=== PATIENT | male | born 1955 | race Caucasian/White ===

== ENCOUNTER 2020-10-01 15:18 | Inpatient (IN) | payer MEDICARE ==
[2020-10-01] MEDS ORDERED: Iopamidol-370 76% 500 ML 1 ML ONE (15:28)
[2020-10-01 15:41] LABS: #Basophils 0.1 thou/uL (0.0-0.2); #Lymphocytes 1.7 thou/uL (1.20-3.40); #Neutrophils 16.6 thou/uL (1.40-6.50); %Basophils 0.3 % (0.0-1.0); %Eosinophils 0.2 % (0.0-10.0); %Lymphocytes 8.5 % (21.0-51.0); %Monocytes 5.3 % (0.0-10.0); %Neutrophils 85.7 % (42.0-75.0); Hemoglobin 16.2 g/dL (14.0-18.0); Mean Corpuscular HGB CONC 34.7 g/dL (32.0-36.0); Mean Corpuscular Hemoglobin 32.3 pg (27.0-31.0); Mean Corpuscular Volume 92.9 fL (78.0-98.0); Mean Platelet Volume 7.7 fL (7.4-10.4); Platelet Count 275 thou/uL (130-400); RBC Distribution Width 12.2 % (11.5-14.5); Red Blood Cell (RBC) Count 5.03 mill/uL (4.70-6.10); White Blood Cell (WBC) Count 19.4 thou/uL (4.8-10.8)
[2020-10-01 16:03] LABS: ALT (SGPT) 84 U/L (8-55); AST (SGOT) 71 U/L (5-34); Albumin 4.2 g/dL (3.4-4.8); Alkaline Phosphatase 69 U/L (40-110); Anion Gap 19 mmol/L (10-20); BUN (Urea Nitrogen) 18 mg/dL (8.4-25.7); Bilirubin, Total 0.5 mg/dL (0.2-1.2); CK (CPK) 465 U/L (30-200); Calc. Creatinine Clearance 0 mL/min (70-130); Calcium 9.9 mg/dL (7.8-10.44); Carbon Dioxide 19 mmol/L (23-31); Chloride 105 mmol/L (98-107); Estimated GFR-MDRD 68; Globulin 3.3 g/dL (2.4-3.5); Glucose 209 mg/dL (80-115); Lipase 53 U/L (8-78); Potassium 3.8 mmol/L (3.5-5.1); Protein, Total 7.5 g/dL (5.8-8.1); Sodium 139 mmol/L (136-145)
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
[2020-10-01] MEDS ORDERED: Fentanyl 100 MCG/2 ML VIAL ONE (16:40)
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
--- NOTE | 2020-10-01 17:13 | RAD ---
THREE VIEWS LEFT SHOULDER: 10/01/20 PROVIDED CLINICAL HISTORY: Shoulder pain. FINDINGS: Multiple displaced left sided rib fractures and scapular fracture are better visualized on CT chest, abdomen and pelvis. Please see that report. The glenohumeral relationship appears normal. IMPRESSION: Left rib and scapular fractures, seen to better advantage on CT. POS: FATMATA
[2020-10-01] MEDS ORDERED: Ondansetron ODT 4 MG TAB PO PRN (18:41)
[2020-10-01] MEDS ORDERED: Dextrose 50% Abboject 50 ML SYRINGE SLOW IVP PRN (18:41)
[2020-10-01] MEDS ORDERED: Ondansetron PF 4 MG/2 ML Vial IVP PRN (18:41)
[2020-10-01] MEDS ORDERED: Dextrose 5% in Water 1,000 ML IV PRN (18:41)
[2020-10-01] MEDS ORDERED: Sodium Chloride 0.9% 1,000 ML IV SCH (18:41)
[2020-10-01] MEDS: traMADol HCl 50 MG TAB PO PRN (19:49)
[2020-10-01] MEDS: Cyclobenzaprine 10 MG TAB PO PRN (19:49)
[2020-10-01] MEDS: Famotidine 20 MG TAB PO SCH (19:51)
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
[2020-10-01 20:10] VITALS: BMI 29.6
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
[2020-10-01 22:24] LABS: INR-International Normal Ratio 1.1; PTT 26.1 sec (22.9-36.1); Prothrombin Time 14.1 sec (12.0-14.7)
[2020-10-01] MEDS ORDERED: Amlodipine 5 mg/Benazepril 10 mg CAP PO SCH (23:30)
[2020-10-01] MEDS: Acetaminophen 500 MG TAB PO SCH (23:30)
[2020-10-01] MEDS: traMADol HCl 50 MG TAB PO SCH (23:31)
[2020-10-02] MEDS: traMADol HCl 50 MG TAB PO PRN ×2 (03:17→13:51)
[2020-10-02 05:57] LABS: Hemoglobin 13.7 g/dL (14.0-18.0); White Blood Cell (WBC) Count 11.5 thou/uL (4.8-10.8)
[2020-10-02 05:58] LABS: #Lymphocytes 1.5 thou/uL (1.20-3.40); #Monocytes 1.4 thou/uL (0.11-0.59); #Neutrophils 8.5 thou/uL (1.40-6.50); %Basophils 0.2 % (0.0-1.0); %Eosinophils 0.1 % (0.0-10.0); %Lymphocytes 13.2 % (21.0-51.0); %Monocytes 12.2 % (0.0-10.0); %Neutrophils 74.2 % (42.0-75.0); Mean Corpuscular HGB CONC 33.7 g/dL (32.0-36.0); Mean Corpuscular Hemoglobin 31.9 pg (27.0-31.0); Mean Corpuscular Volume 94.6 fL (78.0-98.0); Mean Platelet Volume 7.8 fL (7.4-10.4); Platelet Count 214 thou/uL (130-400); RBC Distribution Width 12.2 % (11.5-14.5)
[2020-10-02] MEDS: traMADol HCl 50 MG TAB PO SCH ×4 (05:58→22:18)
[2020-10-02] MEDS: Acetaminophen 500 MG TAB PO SCH ×4 (05:59→22:17)
[2020-10-02 06:16] LABS: Anion Gap 16 mmol/L (10-20); BUN (Urea Nitrogen) 16 mg/dL (8.4-25.7); Calc. Creatinine Clearance 107 mL/min (70-130); Calcium 8.7 mg/dL (7.8-10.44); Carbon Dioxide 19 mmol/L (23-31); Chloride 107 mmol/L (98-107); Estimated GFR-MDRD 90; Glucose 126 mg/dL (80-115); Potassium 3.8 mmol/L (3.5-5.1); Sodium 138 mmol/L (136-145)
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
[2020-10-02] MEDS: Famotidine 20 MG TAB PO SCH ×2 (08:44→20:04)
[2020-10-02] MEDS: Amlodipine 5 mg/Benazepril 10 mg CAP PO SCH (08:44)
--- NOTE | 2020-10-02 09:00 | CT ---
PRELIMINARY REPORT/[facility]/AFTER HOURS PROCEDURE CT HEAD WITHOUT INTRAVENOUS CONTRAST: CLINICAL HISTORY: Follow up [facility]. TECHNIQUE: Axial computed tomography images of the head/brain without intravenous contrast. COMPARISON: CT brain without contrast from 10/01/2020 at 3:30 p.m. CDT. FINDINGS: BRAIN: Cavum septum pellucidum et vergae, congenital variant. Subtle foci of subarachnoid hemorrhage within sulci of the left parietal and temporal lobes are noted , possibly redistribution. Blood products previously seen in the left sylvian fissure are no longer seen. Previously described right occipital parenchymal contusion/subarachnoid hemorrhage is not well seen on the current exam. No significant new hemorrhage or progression of findings. No mass lesion. No CT evidence for acute territorial infarct. No midline shift or extra-axial collect ion. VENTRICLES: Stable, normal size of the ventricles. ORBITS: The orbits are unremarkable. SINUSES AND MASTOIDS: The paranasal sinuses and mastoid air cells are clear. SOFT TISSUES: No significant facial or scalp soft tissue swelling evident. No radiopaque foreign body is seen. BONES: No acute skull fracture. IMPRESSION: A few subtle foci of subarachnoid hemorrhage within sulci of the left temporal and parietal lobes, po ssibly redistribution from prior exam, without significant new hemorrhage or progression of findings. ELECTRONICALLY SIGNED BY: Mart Trivedi MD Oct 02, 2020 3:24:28 AM DIRECTOR OF DEMENTIA OPERATIONS This report is intended for review by the ordering physician only, in accordance of law. If you recei ve this report in error, please call [facility] at [phone]. FINAL REPORT EMERGENT AFTER HOURS CT BRAIN: IMPRESSION: I agree with the preliminary interpretation. CODE QA POS: FATMATA
[2020-10-02] MEDS ORDERED: Cepastat Lozenges 1 LOZ PO PRN (11:21)
--- NOTE | 2020-10-02 11:43 | RAD ---
Portable frontal chest radiograph: 10/02/2020 COMPARISON: 10/01/2020 HISTORY: Injury, trauma, pain FINDINGS: Inspiration is shallow. There is hazy increased density in the left lung base, particularly medially, slightly worsened when compared to the prior exam. This could signify contusion or volume loss. Multiple stable left-sided rib fractures noted. There is a left-sided scapular fracture as well. Tiny pneumothorax seen on the prior examination on the left is not seen which may be secondary to its very small size or interval resolution. No significant pneumothorax is noted on either side. IMPRESSION: Shallow inspiration with nonspecific worsening of left basilar aeration. Left-sided rib f ractures and left scapular fracture, better assessed on the 10/01/2020 CT exam.
[2020-10-02] MEDS: Cyclobenzaprine 10 MG TAB PO PRN (12:04)
[2020-10-02] MEDS: Oxymetazoline HCl 0.05% (30 ML BOT) NS PRN ×2 (16:03→20:04)
[2020-10-02] MEDS: Insulin Regular 300 UNITS/3 ML VIAL SC PRN ×2 (16:57→21:57)
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
[2020-10-02] MEDS ORDERED: FLU VACC QS2020-21(65YR UP)/PF 240 MCG/0.7 ML SYRINGE IM ONE (21:00)
[2020-10-02] MEDS ORDERED: Furosemide 40 MG/4 ML VIAL SLOW IVP SCH (21:30)
[2020-10-02] MEDS: Senokot S 8.6-50 MG TAB PO SCH (21:41)
--- NOTE | 2020-10-02 21:48 | RAD ---
Chest AP view INDICATION: Shortness of breath COMPARISON: Prior exam dated October 02, 2020 FINDINGS: Lungs: There is worsening bibasilar airspace opacities and low lung volumes Cardiac silhouette: There is stable mild cardiomegaly. Pulmonary vasculature: Normal Pleural spaces: No definite pneumothorax is evident. Upper abdomen: No abnormality seen. Osseous structures: Multiple left-sided rib fractures and left scapular fracture are stable appearin g. Additional findings: None. IMPRESSION: Slightly more pronounced bibasilar airspace opacities possibly related to subsegmental volume loss. D eveloping pneumonia is not entirely excluded. Continued follow-up is recommended. No pneumothorax identified.
[2020-10-02] MEDS ORDERED: Gabapentin 300 MG CAP PO SCH (22:00)
[2020-10-02 22:20] LABS: Anion Gap 13 mmol/L (10-20); BUN (Urea Nitrogen) 15 mg/dL (8.4-25.7); Calc. Creatinine Clearance 111 mL/min (70-130); Calcium 8.8 mg/dL (7.8-10.44); Carbon Dioxide 24 mmol/L (23-31); Chloride 103 mmol/L (98-107); Estimated GFR-MDRD Greater than 90; Glucose 173 mg/dL (80-115); Phosphorus 2.3 mg/dL (2.3-4.7); Sodium 136 mmol/L (136-145)
[2020-10-03] MEDS: Acetaminophen 500 MG TAB PO SCH ×4 (05:59→23:29)
[2020-10-03] MEDS: traMADol HCl 50 MG TAB PO SCH ×4 (06:00→23:30)
[2020-10-03] MEDS: Insulin Regular 300 UNITS/3 ML VIAL SC PRN ×3 (07:39→17:21)
[2020-10-03] MEDS: Amlodipine 5 mg/Benazepril 10 mg CAP PO SCH (08:53)
[2020-10-03] MEDS: Polyethylene Glycol 3350 17 GM Packet PO SCH (08:53)
[2020-10-03] MEDS: Senokot S 8.6-50 MG TAB PO SCH ×2 (08:54→21:09)
[2020-10-03] MEDS: Famotidine 20 MG TAB PO SCH ×2 (08:54→21:09)
[2020-10-03] MEDS ORDERED: Gabapentin 300 MG CAP PO SCH (09:00)
[2020-10-03 12:52] LABS: SARS-CoV-2 MS2 Positive; SARS-CoV-2 N Gene Negative; SARS-CoV-2 S Gene Negative; SARS-CoV-2 by NAA Not Detected (NotDetected); SARS-CoV-2 orf1ab Negative
[2020-10-03] MEDS: Cyclobenzaprine 10 MG TAB PO PRN (15:58)
[2020-10-03] MEDS: Gabapentin 300 MG CAP PO SCH ×2 (16:00→21:09)
[2020-10-03 16:29] LABS: #Lymphocytes 1.1 thou/uL (1.20-3.40); #Neutrophils 12.1 thou/uL (1.40-6.50); %Basophils 0.2 % (0.0-1.0); %Eosinophils 0.3 % (0.0-10.0); %Lymphocytes 7.5 % (21.0-51.0); %Neutrophils 85.1 % (42.0-75.0); Hemoglobin 13.9 g/dL (14.0-18.0); Mean Corpuscular Hemoglobin 31.9 pg (27.0-31.0); Mean Corpuscular Volume 93.6 fL (78.0-98.0); Mean Platelet Volume 7.7 fL (7.4-10.4); Platelet Count 202 thou/uL (130-400); RBC Distribution Width 12.2 % (11.5-14.5); Red Blood Cell (RBC) Count 4.37 mill/uL (4.70-6.10); White Blood Cell (WBC) Count 14.2 thou/uL (4.8-10.8)
[2020-10-03 16:57] LABS: Anion Gap 13 mmol/L (10-20); BUN (Urea Nitrogen) 15 mg/dL (8.4-25.7); Calc. Creatinine Clearance 99 mL/min (70-130); Calcium 9.3 mg/dL (7.8-10.44); Carbon Dioxide 26 mmol/L (23-31); Chloride 102 mmol/L (98-107); Estimated GFR-MDRD 82; Glucose 241 mg/dL (80-115); Magnesium 2.1 mg/dL (1.6-2.6); Phosphorus 2.1 mg/dL (2.3-4.7); Sodium 137 mmol/L (136-145)
--- NOTE | 2020-10-03 18:27 | RAD ---
Portable frontal chest radiograph: 10/03/2020 COMPARISON: 10/02/2020 HISTORY: Fever, tachypnea, hypoxia FINDINGS: Worsening dense opacity noted within both lung bases. No pneumothorax is seen. Inspiration is shallow. Known fracture deformities involving the left scapula and multiple left-sided ribs are difficult to a ppreciate on this examination. IMPRESSION: Worsening nonspecific dense opacity in the lung bases suggesting infectious pneumonitis/a spiration with associated pleural fluid.
[2020-10-03 18:31] LABS: Base Excess (BEa) 2.4 mEq/L (-2.0 to +3.0); CO2 Tension 32.7 mmHg (35.0-45.0); Carboxyhemoglobin (COHb) 0.7 gm% (0.0-3.0); Potassium - ABG Lab 3.72 mmol/L (3.70-5.30)
[2020-10-03 18:32] LABS: ALV-art Gradient 166.805 mmHg (0-20); Puncture Site RBA
[2020-10-03 20:15] LABS: Actual Bicarbonate (HCO3a) 26.2 mEq/L (22-28); Base Excess (BEa) 2.5 mEq/L (-2.0 to +3.0); CO2 Tension 37.2 mmHg (35.0-45.0); Calcium, Ionized (arterial) 1.18 mmol/L (1.12-1.30); Carboxyhemoglobin (COHb) 0.5 gm% (0.0-3.0); Hemoglobin (Hb) 13.7 g/dL (14.0-18.0); Potassium - ABG Lab 3.72 mmol/L (3.70-5.30); pH, Arterial 7.47 (7.35-7.45)
[2020-10-03 20:16] LABS: O2 Tension (PaO2), arterial 58.3 mmHg (> 80.0)
[2020-10-03 20:17] LABS: Puncture Site R BRACHIAL
[2020-10-04] MEDS: Acetaminophen 500 MG TAB PO SCH ×4 (05:38→23:35)
[2020-10-04] MEDS: traMADol HCl 50 MG TAB PO SCH ×4 (05:39→23:35)
[2020-10-04] MEDS: Insulin Regular 300 UNITS/3 ML VIAL SC PRN ×4 (05:40→21:01)
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
[2020-10-04] MEDS: Polyethylene Glycol 3350 17 GM Packet PO SCH (08:22)
[2020-10-04] MEDS: Amlodipine 5 mg/Benazepril 10 mg CAP PO SCH (08:22)
[2020-10-04] MEDS: Famotidine 20 MG TAB PO SCH ×2 (08:23→21:01)
[2020-10-04] MEDS: Senokot S 8.6-50 MG TAB PO SCH ×2 (08:23→21:01)
[2020-10-04] MEDS: Gabapentin 300 MG CAP PO SCH ×3 (08:23→21:00)
[2020-10-04] MEDS ORDERED: Ibuprofen 600 MG TAB PO PRN (08:44)
--- NOTE | 2020-10-04 10:28 | RAD ---
PORTABLE CHEST: Date: 10/04/2020 HISTORY: Respiratory distress. COMPARISON: Prior day's study. FINDINGS: Heart size appears slightly enlarged. There are bibasilar lung changes which are probably a combinati on of infiltrate and probably some element of effusion are essentially stable as compared to the prio r exam. IMPRESSION: Essentially stable exam. POS: SOLOMON
--- NOTE | 2020-10-04 23:44 | EKG ---
Test Reason : STAT Blood Pressure : / mmHG Vent. Rate : 136 BPM Atrial Rate : 136 BPM P-R Int : 142 ms QRS Dur : 144 ms QT Int : 394 ms P-R-T Axes : 049 -81 031 degrees QTc Int : 592 ms Sinus tachycardia Left axis deviation Right bundle branch block Abnormal ECG Confirmed by Radha FRENCH ([id number]) on 10/04/2020 11:44:12 PM Referred By: SUJATA MASCORRO Confirmed By:Radha FRENCH
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
[2020-10-05] MEDS: Acetaminophen 500 MG TAB PO SCH ×4 (05:05→23:20)
[2020-10-05] MEDS: traMADol HCl 50 MG TAB PO SCH ×4 (05:06→23:20)
[2020-10-05 06:20] LABS: Anion Gap 12 mmol/L (10-20); BUN (Urea Nitrogen) 19 mg/dL (8.4-25.7); Calc. Creatinine Clearance 121 mL/min (70-130); Calcium 9.3 mg/dL (7.8-10.44); Carbon Dioxide 26 mmol/L (23-31); Chloride 102 mmol/L (98-107); Estimated GFR-MDRD Greater than 90; Glucose 121 mg/dL (80-115); Phosphorus 2.7 mg/dL (2.3-4.7); Potassium 3.9 mmol/L (3.5-5.1); Sodium 136 mmol/L (136-145)
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
[2020-10-05] MEDS: Gabapentin 300 MG CAP PO SCH ×3 (09:01→20:29)
[2020-10-05] MEDS: Senokot S 8.6-50 MG TAB PO SCH ×2 (09:01→20:29)
[2020-10-05] MEDS: Amlodipine 5 mg/Benazepril 10 mg CAP PO SCH (09:01)
[2020-10-05] MEDS: Polyethylene Glycol 3350 17 GM Packet PO SCH (09:02)
--- NOTE | 2020-10-05 12:13 | ULT ---
Left upper extremity venous Doppler ultrasound: 10/05/2020 COMPARISON: None HISTORY: Left upper extremity swelling, edema, assess for DVT TECHNIQUE: Multiplanar grayscale sonographic imaging of the venous structures of the left upper extre mity obtained with Doppler interrogation including color flow and spectral analysis FINDINGS: The left internal jugular vein, subclavian vein, and axillary vein appear patent. The left cephalic vein and the left brachial vein appear patent as well. There is a focal area of the left basilic vein in the region of the patient's IV which contains throm bus and is noncompressible consistent with superficial venous thrombosis of the left basilic vein. The left radial vein and left ulnar vein are patent. IMPRESSION: Superficial venous thrombosis involving the left basilic vein as above. No sonographic ev idence of deep venous thrombosis is seen.
[2020-10-05] MEDS: Insulin Regular 300 UNITS/3 ML VIAL SC PRN ×2 (14:30→17:27)
[2020-10-05] MEDS: Fenofibrate Nanocrystallized 145 MG TAB PO SCH (20:29)
[2020-10-05] MEDS: Atorvastatin Calcium 20 MG TAB PO SCH (20:30)
[2020-10-05 23:18] LABS: Bilirubin Negative (Negative); Blood, Urine Trace (Negative); Glucose, Urine (Dipstick) >=1000 mg/dL (Negative); Ketone, Urine Negative (Negative); Leukocyte Negative (Negative); Nitrite Negative (Negative); Protein, Urine (Dipstick) Negative (Neg-Trace); Specific Gravity, Urine 1.015 (1.005-1.030); pH, Urine 6.5 (5.0-9.0)
[2020-10-05 23:24] LABS: Clarity Clear (Clear)
[2020-10-05 23:29] LABS: Bacteria/HPF None Seen HPF (None Seen); RBC/HPF 0-3 HPF (0-3); Squamous Epithelial None Seen HPF (0-3); WBC/HPF 0-3 HPF (0-3)
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
[2020-10-06 05:11] LABS: #Eosinphils 0.4 thou/uL (0.0-0.7); #Lymphocytes 2.3 thou/uL (1.20-3.40); #Monocytes 0.8 thou/uL (0.11-0.59); #Neutrophils 5.1 thou/uL (1.40-6.50); %Basophils 0.6 % (0.0-1.0); %Eosinophils 4.6 % (0.0-10.0); %Lymphocytes 26.2 % (21.0-51.0); %Monocytes 9.4 % (0.0-10.0); %Neutrophils 59.3 % (42.0-75.0); Hemoglobin 12.4 g/dL (14.0-18.0); Mean Corpuscular HGB CONC 34.1 g/dL (32.0-36.0); Mean Corpuscular Hemoglobin 32.4 pg (27.0-31.0); Mean Corpuscular Volume 94.9 fL (78.0-98.0); Mean Platelet Volume 7.6 fL (7.4-10.4); Platelet Count 248 thou/uL (130-400); RBC Distribution Width 12.2 % (11.5-14.5); Red Blood Cell (RBC) Count 3.82 mill/uL (4.70-6.10); White Blood Cell (WBC) Count 8.6 thou/uL (4.8-10.8)
[2020-10-06] MEDS: Insulin Regular 300 UNITS/3 ML VIAL SC PRN ×3 (05:30→16:44)
[2020-10-06] MEDS: traMADol HCl 50 MG TAB PO SCH ×4 (05:30→22:54)
[2020-10-06] MEDS: Acetaminophen 500 MG TAB PO SCH ×4 (05:30→22:55)
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
[2020-10-06] MEDS: Senokot S 8.6-50 MG TAB PO SCH ×2 (08:43→20:56)
[2020-10-06] MEDS: Amlodipine 5 mg/Benazepril 10 mg CAP PO SCH (08:43)
[2020-10-06] MEDS: Gabapentin 300 MG CAP PO SCH ×3 (08:44→20:55)
[2020-10-06] MEDS: Polyethylene Glycol 3350 17 GM Packet PO SCH (08:46)
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
[2020-10-06] MEDS: Fenofibrate Nanocrystallized 145 MG TAB PO SCH (20:56)
[2020-10-06] MEDS: Atorvastatin Calcium 20 MG TAB PO SCH (20:56)
[2020-10-06] MEDS ORDERED: Melatonin 3 MG TAB PO SCH (22:30)
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
[2020-10-07] MEDS: traMADol HCl 50 MG TAB PO SCH ×3 (05:05→19:13)
[2020-10-07] MEDS: Acetaminophen 500 MG TAB PO SCH ×3 (05:05→19:12)
[2020-10-07] MEDS: Senokot S 8.6-50 MG TAB PO SCH ×2 (08:00→21:26)
[2020-10-07] MEDS: Polyethylene Glycol 3350 17 GM Packet PO SCH (08:01)
[2020-10-07] MEDS: Amlodipine 5 mg/Benazepril 10 mg CAP PO SCH (08:01)
[2020-10-07] MEDS: Gabapentin 300 MG CAP PO SCH ×3 (08:01→21:26)
--- NOTE | 2020-10-07 10:13 | RAD ---
Chest AP view INDICATION: History of pneumonia COMPARISON: Prior examination dated October 04, 2020 FINDINGS: Lungs: The airspace disease involving both lower lobes is stable. Cardiac silhouette: Mild cardiomegaly is stable. Pulmonary vasculature: Pulmonary vascular congestion persists. Pleural spaces: Small bilateral pleural effusions, left greater than right are stable. Upper abdomen: No abnormality seen. Osseous structures: Osseous structures are unchanged. Additional findings: No pneumothorax IMPRESSION: Stable examination the chest.
[2020-10-07 13:56] LABS: Anion Gap 13 mmol/L (10-20); BUN (Urea Nitrogen) 18 mg/dL (8.4-25.7); Calc. Creatinine Clearance 120 mL/min (70-130); Calcium 9.7 mg/dL (7.8-10.44); Carbon Dioxide 27 mmol/L (23-31); Chloride 102 mmol/L (98-107); Estimated GFR-MDRD Greater than 90; Glucose 195 mg/dL (80-115); Potassium 4.1 mmol/L (3.5-5.1); Sodium 138 mmol/L (136-145)
[2020-10-07] MEDS: cefTRIAXone\\ROCEPHIN 2 GM in Sodium Chloride 0.9% 100 ML IVPB SCH (14:18)
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
[2020-10-07] MEDS: Atorvastatin Calcium 20 MG TAB PO SCH (21:26)
[2020-10-07] MEDS: Melatonin 3 MG TAB PO SCH (21:26)
[2020-10-07] MEDS: Fenofibrate Nanocrystallized 145 MG TAB PO SCH (21:26)
[2020-10-07] MEDS: Insulin Regular 300 UNITS/3 ML VIAL SC PRN (21:27)
[2020-10-08] MEDS: traMADol HCl 50 MG TAB PO SCH ×4 (00:39→18:31)
[2020-10-08] MEDS: Acetaminophen 500 MG TAB PO SCH ×4 (00:40→18:31)
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
[2020-10-08 05:29] LABS: Anion Gap 11 mmol/L (10-20); BUN (Urea Nitrogen) 17 mg/dL (8.4-25.7); Calc. Creatinine Clearance 128 mL/min (70-130); Calcium 9.6 mg/dL (7.8-10.44); Carbon Dioxide 26 mmol/L (23-31); Chloride 104 mmol/L (98-107); Estimated GFR-MDRD Greater than 90; Glucose 160 mg/dL (80-115); Magnesium 2.1 mg/dL (1.6-2.6); Phosphorus 3.1 mg/dL (2.3-4.7); Potassium 4.4 mmol/L (3.5-5.1); Sodium 137 mmol/L (136-145)
[2020-10-08 05:42] LABS: Band 6 % (5-11); Eosinophils 3 % (0-10); Hemoglobin 13.6 g/dL (14.0-18.0); Lymphocytes 17 % (21-51); MDiff Complete? YES; Mean Corpuscular HGB CONC 33.7 g/dL (32.0-36.0); Mean Corpuscular Volume 95.1 fL (78.0-98.0); Mean Platelet Volume 7.5 fL (7.4-10.4); Monocytes 13 % (0-10); Myelocyte 1 % (0-0); Neutrophil 60 % (42-75); Platelet Count 337 thou/uL (130-400); RBC Distribution Width 12.3 % (11.5-14.5); Red Blood Cell (RBC) Count 4.23 mill/uL (4.70-6.10); White Blood Cell (WBC) Count 10.1 thou/uL (4.8-10.8)
[2020-10-08] MEDS: Insulin Regular 300 UNITS/3 ML VIAL SC PRN ×4 (05:48→21:27)
[2020-10-08] MEDS: Saccharomyces boulardii 250 MG CAP PO SCH (08:48)
[2020-10-08] MEDS: Gabapentin 300 MG CAP PO SCH ×3 (08:48→21:26)
[2020-10-08] MEDS: Amlodipine 5 mg/Benazepril 10 mg CAP PO SCH (08:48)
[2020-10-08] MEDS: Senokot S 8.6-50 MG TAB PO SCH ×2 (08:48→21:26)
[2020-10-08] MEDS: Polyethylene Glycol 3350 17 GM Packet PO SCH (08:49)
[2020-10-08] MEDS: cefTRIAXone\\ROCEPHIN 2 GM in Sodium Chloride 0.9% 100 ML IVPB SCH (12:53)
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
[2020-10-08] MEDS: Cyclobenzaprine 10 MG TAB PO PRN (15:52)
--- NOTE | 2020-10-08 16:04 | EKG ---
Test Reason : Blood Pressure : / mmHG Vent. Rate : 086 BPM Atrial Rate : 086 BPM P-R Int : 146 ms QRS Dur : 150 ms QT Int : 400 ms P-R-T Axes : 035 -61 026 degrees QTc Int : 478 ms Normal sinus rhythm Right bundle branch block Left anterior fascicular block Bifascicular block Minimal voltage criteria for LVH, may be normal variant Abnormal ECG Confirmed by PADMINI JEROME, LUCY ([id number]), industrial editor BRANDI WILSON ([id number]) on 10/08/2020 4:03:55 PM Referred By: Confirmed By:LUCY WASHINGTON MD
[2020-10-08] MEDS: Melatonin 3 MG TAB PO SCH (21:26)
[2020-10-08] MEDS: Fenofibrate Nanocrystallized 145 MG TAB PO SCH (21:26)
[2020-10-08] MEDS: Atorvastatin Calcium 20 MG TAB PO SCH (21:26)
[2020-10-09] MEDS: Acetaminophen 500 MG TAB PO SCH ×4 (00:17→17:47)
[2020-10-09] MEDS: traMADol HCl 50 MG TAB PO SCH ×4 (00:18→17:47)
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
[2020-10-09] MEDS: Polyethylene Glycol 3350 17 GM Packet PO SCH (08:06)
[2020-10-09] MEDS: Senokot S 8.6-50 MG TAB PO SCH ×2 (08:07→20:34)
[2020-10-09] MEDS: Gabapentin 300 MG CAP PO SCH ×3 (08:07→20:34)
[2020-10-09] MEDS: Amlodipine 5 mg/Benazepril 10 mg CAP PO SCH (08:07)
[2020-10-09] MEDS: Saccharomyces boulardii 250 MG CAP PO SCH (08:07)
[2020-10-09] MEDS: Insulin Regular 300 UNITS/3 ML VIAL SC PRN ×2 (12:10→17:49)
[2020-10-09] MEDS: cefTRIAXone\\ROCEPHIN 2 GM in Sodium Chloride 0.9% 100 ML IVPB SCH (12:10)
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
[2020-10-09] MEDS: metFORMIN 500 MG TAB PO SCH (17:47)
[2020-10-09] MEDS: Melatonin 3 MG TAB PO SCH (20:34)
[2020-10-09] MEDS: Fenofibrate Nanocrystallized 145 MG TAB PO SCH (20:35)
[2020-10-09] MEDS: Atorvastatin Calcium 20 MG TAB PO SCH (20:35)
[2020-10-09] MEDS: Empagliflozin 25 MG TAB PO SCH (20:35)
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
[2020-10-10] MEDS: Acetaminophen 500 MG TAB PO SCH ×4 (01:09→17:20)
[2020-10-10] MEDS: traMADol HCl 50 MG TAB PO SCH ×4 (01:09→17:20)
[2020-10-10] MEDS: Saccharomyces boulardii 250 MG CAP PO SCH (08:56)
[2020-10-10] MEDS: Gabapentin 300 MG CAP PO SCH ×3 (08:56→20:54)
[2020-10-10] MEDS: Senokot S 8.6-50 MG TAB PO SCH ×2 (08:56→20:54)
[2020-10-10] MEDS: Amlodipine 5 mg/Benazepril 10 mg CAP PO SCH (08:56)
[2020-10-10] MEDS: Polyethylene Glycol 3350 17 GM Packet PO SCH (08:56)
[2020-10-10] MEDS: cefTRIAXone\\ROCEPHIN 2 GM in Sodium Chloride 0.9% 100 ML IVPB SCH (11:38)
[2020-10-10] MEDS: Insulin Regular 300 UNITS/3 ML VIAL SC PRN ×2 (11:46→17:25)
[2020-10-10] MEDS: metFORMIN 500 MG TAB PO SCH (16:00)
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
[2020-10-10 20:15] VITALS: BP 138/84; TEMP 97.7
[2020-10-10] MEDS: Fenofibrate Nanocrystallized 145 MG TAB PO SCH (20:54)
[2020-10-10] MEDS: Melatonin 3 MG TAB PO SCH (20:54)
[2020-10-10] MEDS: Atorvastatin Calcium 20 MG TAB PO SCH (20:54)
[2020-10-10] MEDS: Empagliflozin 25 MG TAB PO SCH (20:55)
[2020-10-10] MEDS ORDERED: Amoxicillin/Potassium Clav 875 MG TAB PO SCH (21:00)
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
== END 2020-10-10 21:15 | DRG 963 ==
LOC: ERS 15:18 → SURG B 16:36
PROVIDERS: ADMIT Surgery; ATTEND Surgery
PROC: 3E0234Z Introduction of Serum, Toxoid and Vaccine into Muscle, Percutaneous Approach (ICD-10-PCS; 2020-10-02)
PROC: 3E02340 Introduction of Influenza Vaccine into Muscle, Percutaneous Approach (ICD-10-PCS; 2020-10-02)
PROC: 5A09357 Assistance with Respiratory Ventilation, Less than 24 Consecutive Hours, Continuous Positive Airway Pressure (ICD-10-PCS; principal; 2020-10-03)
DX: S06.6X9A Traumatic subarachnoid hemorrhage with loss of consciousness of unspecified duration, initial encounter (principal); S27.2XXA Traumatic hemopneumothorax, initial encounter; J18.9 Pneumonia, unspecified organism; S22.42XA Multiple fractures of ribs, left side, initial encounter for closed fracture; S22.059A Unspecified fracture of T5-T6 vertebra, initial encounter for closed fracture; S22.069A Unspecified fracture of T7-T8 vertebra, initial encounter for closed fracture; S27.321A Contusion of lung, unilateral, initial encounter; J98.11 Atelectasis; I82.612 Acute embolism and thrombosis of superficial veins of left upper extremity; E78.5 Hyperlipidemia, unspecified; I10 Essential (primary) hypertension; Z96.653 Presence of artificial knee joint, bilateral; E11.9 Type 2 diabetes mellitus without complications; Z20.828 Contact with and (suspected) exposure to other viral communicable diseases; S14.3XXA Injury of brachial plexus, initial encounter; V29.9XXA Motorcycle rider (driver) (passenger) injured in unspecified traffic accident, initial encounter; Z98.1 Arthrodesis status; Z23 Encounter for immunization; Z79.899 Other long term (current) drug therapy; Z79.84 Long term (current) use of oral hypoglycemic drugs
CPT/HCPCS: 36415; 36416; 70450; 71045; 71260; 72125; 74177; 80048; 80053; 81003; 82550; 82805; 83690; 83735; 83880; 84100; 84484; 85007; 85025; 85027; 85610; 85730; 87040; 87070; 87086; 87205; 87635; 90471; 90662; 90732; 93005; 93010; 94640; 94660; 96374; G0008; G0009; G0390; J0696; J1815; J1940; J1956; J3010; J3490; J7620; Q9967; U0003